=== PATIENT | male | born 1960 | race Hispanic/Latino ===

== ENCOUNTER 2018-12-30 12:22 | Emergency (ER) | payer BC ==
[2018-12-30 14:14] LABS: Basophils % 0.9 % (0-1.3); MPV 8.7 fL (7.6-11.3); RBC Red Blood Cell Count 4.97 M/uL (4.33-5.43)
[2018-12-30 14:23] LABS: Albumin 3.4 g/dL (3.4-5.0); Bilirubin Direct 0.1 mg/dL (0-0.2); Bilirubin Total 0.4 mg/dL (0.2-1.0); Potassium 3.7 mmol/L (3.5-5.1); Protein, Total 7.7 g/dL (6.4-8.2)
[2018-12-30] MEDS ORDERED: LIDOCAINE 1% W/EPI 1:100,000 MDV 20 ML VIAL ONE (15:00)
--- NOTE | 2018-12-30 15:43 | EDPHYS ---
Physician Documentation [facility] Name: Charanjit Hemphill Jr Age: 58 yrs Sex: Male : 1960 Arrival Date: 12/30/2018 Time: 12:24 Bed 23 Private MD: Luis Bird ED Physician Ifeanyi Roman HPI: 12/30 15:31 This 58 yrs old Male presents to ER via Ambulatory with complaints of gs Testicular Problem. 15:31 The patient presents with an abscess of the left testicle. Description: The affected gs area is small, confluent, fluctuant, warm. Onset: The symptoms/episode began/occurred 2 day(s) ago, and became worse and became persistent. Possible cause(s): unknown. Associated signs and symptoms: Pertinent negatives: fever. Modifying factors: the symptoms are alleviated by nothing, the symptoms are aggravated by squeezing the lesion and expressing the contents, touching. Severity of symptoms: At their worst the symptoms were moderate, in the emergency department the symptoms are unchanged. The patient has not experienced similar symptoms in the past. The patient has been recently seen by a physician: the patient's primary care provider. Historical: - Allergies: 12:36 unknown pain medication; sg - PMHx: 12:36 Arthritis; Hyperlipidemia; Hypertension; psoriasis; sg 12:43 Diabetes - IDDM; sg - PSHx: 12:36 lap band; sg - Immunization history:: Adult Immunizations up to date. - Social history:: Smoking status: Patient/guardian denies using tobacco. - Ebola Screening: : Patient negative for fever greater than or equal to 101.5 degrees Fahrenheit, and additional compatible Ebola Virus Disease symptoms Patient denies exposure to infectious person Patient denies travel to an Ebola-affected area in the 21 days before illness onset No symptoms or risks identified at this time. ROS: 15:31 All other systems are negative. gs Exam: 15:31 Head/Face: Normocephalic, atraumatic. Eyes: Pupils equal round and reactive to light, gs extra-ocular motions intact. Lids and lashes normal. Conjunctiva and sclera are non-icteric and not injected. Cornea within normal limits. Periorbital areas with no swelling, redness, or edema. ENT: Nares patent. No nasal discharge, no septal abnormalities noted. Tympanic membranes are normal and external auditory canals are clear. Oropharynx with no redness, swelling, or masses, exudates, or evidence of obstruction, uvula midline. Mucous membranes moist. Neck: Trachea midline, no thyromegaly or masses palpated, and no cervical lymphadenopathy. Supple, full range of motion without nuchal rigidity, or vertebral point tenderness. No Meningismus. Chest/axilla: Normal chest wall appearance and motion. Nontender with no deformity. No lesions are appreciated. Cardiovascular: Regular rate and rhythm with a normal S1 and S2. No gallops, murmurs, or rubs. Normal PMI, no JVD. No pulse deficits. Respiratory: Lungs have equal breath sounds bilaterally, clear to auscultation and percussion. No rales, rhonchi or wheezes noted. No increased work of breathing, no retractions or nasal flaring. Abdomen/GI: Soft, non-tender, with normal bowel sounds. No distension or tympany. No guarding or rebound. No evidence of tenderness throughout. Back: No spinal tenderness. No costovertebral tenderness. Full range of motion. MS/ Extremity: Pulses equal, no cyanosis. Neurovascular intact. Full, normal range of motion. Neuro: Awake and alert, GCS 15, oriented to person, place, time, and situation. Cranial nerves II-XII grossly intact. Motor strength 5/5 in all extremities. Sensory grossly intact. Cerebellar exam normal. Normal gait. 15:31 Constitutional: The patient appears alert, awake, non-toxic. 15:31 : Male external genitalia: 3CM CUTANEOUS ABSCESS LEFT HEMISCROTUM INDURATED FLUCTUANT TRACE OVERLYNING CELLULITIS. 15:31 Skin: PSORIATIC RASH PUBIS NOT WARM NOT TENDER NOT CELLULITIS. Vital Signs: 12:40 BP 148 / 94; Pulse 117; Resp 17; Temp 97.8; Pulse Ox 98% on R/A; Pain 4/10; sg 14:30 BP 140 / 87; Pulse 114; Resp 19; Pulse Ox 96% on R/A; sg 16:00 BP 132 / 80; Pulse 90; Resp 17; Pulse Ox 99% on R/A; sg Procedures: 15:40 I \T\ D: Incision and drainage was performed for an abscess of the SCROTUM Prepped with gs Betadine, Anesthetized with 5 ml's 1% Lidocaine w/ Epi. Incised with #15 blade. Drained moderate amount purulent fluid. Packed with sterile gauze, Dressing: sterile 4x4 gauze, the patient tolerated the procedure well. MDM: 14:45 Patient medically screened. 15:31 Differential diagnosis: abscess, cellulitis. Data reviewed: vital signs, nurses notes. gs Counseling: I had a detailed discussion with the patient and/or guardian regarding: the historical points, exam findings, and any diagnostic results supporting the discharge/admit diagnosis. Physician consultation: Luc Hinkle MD and will see patient in office, tomorrow, WANT ME TO I AND D CULTURE. 12/30 13:31 Order name: Glucose, Ancillary Testing; Complete Time: 14:44 EDMT 12/30 13:52 Order name: Basic Metabolic Panel; Complete Time: 14:44 12/30 13:52 Order name: CBC with Diff; Complete Time: 14:44 12/30 13:52 Order name: Creatinine for Radiology; Complete Time: 14:44 12/30 13:52 Order name: Hepatic Function; Complete Time: 14:44 12/30 13:52 Order name: Lipase; Complete Time: 14:44 12/30 13:52 Order name: IV Saline Lock; Complete Time: 13:53 12/30 13:52 Order name: Labs collected and sent; Complete Time: 13:53 12/30 15:40 Order name: Wound Culture Administered Medications: 15:18 Drug: Lidocaine-Epinephrine -1%: (1:100,000) 5 ml {Note: medication administered by .} Volume: 20 ml; Route: Infiltration; Disposition: 12/30/18 15:43 Discharged to Home. Impression: Cutaneous abscess of groin - SCROTUM. - Condition is Stable. - Discharge Instructions: Skin Abscess. - Medication Reconciliation Form, Thank You Letter, Antibiotic Education, Prescription Opioid Use form. - Follow up: Luc Hinkle MD; When: 2 - 3 days; Reason: Re-evaluation by your physician. - Notes: TAKE THE CLINDAMYCIN AND BACTRIM PRESCRIBED Signatures: Dispatcher [employer] EDMS Carlos Wilson RN RN sg Starr, Gregory, MD MD Corrections: (The following items were deleted from the chart) 16:10 15:43 12/30/2018 15:43 Discharged to Home. Impression: Cutaneous abscess of groin - sg SCROTUM. Condition is Stable. Forms are Medication Reconciliation Form, Thank You Letter, Antibiotic Education, Prescription Opioid Use. Follow up: Luc Hinkle; When: 2 - 3 days; Reason: Re-evaluation by your physician. gs
--- NOTE | 2018-12-30 15:43 | ER ---
Nurse's Notes [facility] Name: Charanjit Hemphill Jr Age: 58 yrs Sex: Male : 1960 Arrival Date: 12/30/2018 Time: 12:24 Bed 23 Private MD: Luis Bird Diagnosis: Cutaneous abscess of groin-SCROTUM Presentation: 12/30 12:41 Presenting complaint: Patient states: large bump on scrotum and reports that the area sg is getting larger and having pain now with redness, and has been trying to treat it at home with OTC antifungals but not improving. Transition of care: patient was not received from another setting of care. Onset of symptoms was December 30, 2018. Risk Assessment: Do you want to hurt yourself or someone else? Patient reports no desire to harm self or others. Initial Sepsis Screen: Does the patient meet any 2 criteria? No. Patient's initial sepsis screen is negative. Does the patient have a suspected source of infection? No. Patient's initial sepsis screen is negative. Care prior to arrival: None. 12:41 Method Of Arrival: Ambulatory sg 12:41 Acuity: AIDA 3 sg Historical: - Allergies: 12:36 unknown pain medication; sg - PMHx: 12:36 Arthritis; Hyperlipidemia; Hypertension; psoriasis; sg 12:43 Diabetes - IDDM; sg - PSHx: 12:36 lap band; sg - Immunization history:: Adult Immunizations up to date. - Social history:: Smoking status: Patient/guardian denies using tobacco. - Ebola Screening: : Patient negative for fever greater than or equal to 101.5 degrees Fahrenheit, and additional compatible Ebola Virus Disease symptoms Patient denies exposure to infectious person Patient denies travel to an Ebola-affected area in the 21 days before illness onset No symptoms or risks identified at this time. Screenin:06 Abuse screen: Denies threats or abuse. Denies injuries from another. Nutritional sg screening: No deficits noted. Tuberculosis screening: No symptoms or risk factors identified. Never had TB. Fall Risk None identified. Assessment: 14:06 Reassessment: Patient appears in no apparent distress at this time. Patient and/or sg family updated on plan of care and expected duration. Pain level reassessed. Patient is alert, oriented x 3, equal unlabored respirations, skin warm/dry/pink. Vital Signs: 12:40 BP 148 / 94; Pulse 117; Resp 17; Temp 97.8; Pulse Ox 98% on R/A; Pain 4/10; sg 14:30 BP 140 / 87; Pulse 114; Resp 19; Pulse Ox 96% on R/A; sg 16:00 BP 132 / 80; Pulse 90; Resp 17; Pulse Ox 99% on R/A; sg ED Course: 12:24 Patient arrived in ED. as 12:25 Luis Bird MD is Private Physician. as 12:36 Arm band placed on. sg 12:42 Triage completed. sg 13:18 Carlos Wilson, RN is Primary Nurse. sg 13:50 Initial lab(s) drawn, by me, sent to lab. Inserted saline lock: 20 gauge in right sg antecubital area, using aseptic technique. Blood collected. 14:05 Ifeanyi Roman MD is Attending Physician. gs 14:06 Patient has correct armband on for positive identification. Placed in gown. Bed in low sg position. Call light in reach. Side rails up X 1. personnel monitor on. Pulse ox on. NIBP on. Warm blanket given. Head of bed elevated. 15:41 Luc Hinkle MD is Referral Physician. 16:00 No provider procedures requiring assistance completed. IV discontinued, intact, sg bleeding controlled, No redness/swelling at site. Pressure dressing applied. Administered Medications: 15:18 Drug: Lidocaine-Epinephrine -1%: (1:100,000) 5 ml {Note: medication administered by .} Volume: 20 ml; Route: Infiltration; Outcome: 15:43 Discharge ordered by . 16:00 Discharged to home ambulatory. 16:00 Condition: good 16:00 Discharge instructions given to patient, Instructed on discharge instructions, follow up and referral plans. medication usage, safety practices, Demonstrated understanding of instructions, follow-up care, medications, Prescriptions given X pt has a prescription for Bactrim and Clindamycin from his PCP that he is supposed to start today per 16:10 Patient left the ED. sg Addendum: 01/02/2019 07:33 Addendum: Culture Results: Positive wound culture. No further action required. Bacteria s s sensitive to prescribed antibiotic. Signatures: Carlos Wilson, Faviola Montejo RN, Shelby, RN RN ss Ifeanyi Roman MD MD gs
[2018-12-30 16:16] VITALS: TEMP 97.8
[2018-12-30 16:17] VITALS: BP 140/87; O2SAT 96
== END 2018-12-30 16:10 | disposition home or self-care (01) ==
LOC: ER 12:22
PROC: 0V95XZZ Drainage of Scrotum, External Approach (ICD-10-PCS; principal; 2018-12-30)
DX: N49.2 Inflammatory disorders of scrotum (principal)
CPT/HCPCS: 36415; 80048; 80076; 82962; 83690; 85025; 87070; 87077; 87186; 87205; 99284